=== PATIENT | male | born 1985 | race Caucasian/White ===

== ENCOUNTER 2016-05-09 10:04 | Emergency (ER) | payer SELFPAY ==
[~2016-05-09] VITALS: Ht 180.3 cm; Wt 66.0 kg
[2016-05-09 10:05] VITALS: BP 136/88; PULSE 120; RESP 18; TEMP 98.2; O2SAT 98
[2016-05-09 10:35] VITALS: BP 137/84; PULSE 102; RESP 20; O2SAT 98
[2016-05-09] MEDS ORDERED: LIDOCAINE VISCOUS 2% SOLN 15 ML UDC PO ONE (10:45)
[2016-05-09] MEDS ORDERED: FAMOTIDINE 20 MG/2 ML VIAL IV PUSH ONE (10:45)
[2016-05-09] MEDS ORDERED: ALUMINUM/MAGNESIUM/SIMETH 30 ML CUP PO ONE (10:45)
--- NOTE | 2016-05-09 10:55 | PD ---
HPI Chief Complaint: Abdominal Pain Time Seen by Provider: 10:32 Travel History International Travel<30 days: No Contact w/Intl Traveler<30days: No Traveled to known affect area: No History of Present Illness HPI Patient is a 30-year-old male who presents to emergency room with complaints of abdominal pain. Patient reports that he has been having constant abdominal pain for the past few months. Patient reports that his pain is located to the left upper abdomen, reports that he has pain to his stomach at all times and nothing makes symptoms better or worse. Reports nausea and vomiting with symptoms. Reports that he has overall decreased PO intake from his abdominal pain. Patient reports no fever/chills. Denies constipation/diarrhea. Reports no recent travels/trips. PFSH Past Medical History Medical History: Denies Significant Hx Diminished Hearing: No Tetanus Vaccination: > 5 Years Influenza Vaccination: No Past Surgical History Surgical History: No Previous Surgery Social History Alcohol Use: No Tobacco Use: Yes (1PPD) Substance Use: No Allergies-Medications (Allergen,Severity, Reaction): Coded Allergies: No Known Allergies (Unverified , 05/09/16) Reported Meds & Prescriptions Reported Meds & Active Scripts Active Protonix (Pantoprazole Sodium) 40 Mg Tab 40 Mg PO DAILY Review of Systems General / Constitutional: No: Fever Eyes: No: Visual changes HENT: No: Headaches Cardiovascular: No: Chest Pain or Discomfort Respiratory: No: Shortness of Breath Gastrointestinal: Positive: Nausea, Vomiting, Abdominal Pain Genitourinary: No: Dysuria Musculoskeletal: No: Pain Skin: No Rash Neurologic: No: Weakness Psychiatric: No: Depression Endocrine: No: Polydipsia Hematologic/Lymphatic: No: Easy Bruising Physical Exam Narrative GENERAL: No acute distress, nontoxic SKIN: Warm and dry. HEAD: Atraumatic. Normocephalic. EYES: Pupils equal and round. No scleral icterus. No injection or drainage. ENT: No nasal bleeding or discharge. Mucous membranes pink and moist. NECK: Trachea midline. No JVD. CARDIOVASCULAR: Regular rate and rhythm. No murmur appreciated. RESPIRATORY: No accessory muscle use. Clear to auscultation. Breath sounds equal bilaterally. GASTROINTESTINAL: Abdomen soft, non-tender, nondistended. MUSCULOSKELETAL: No obvious deformities. No clubbing. No cyanosis. No edema. NEUROLOGICAL: Awake and alert. No obvious cranial nerve deficits. Motor grossly within normal limits. Normal speech. PSYCHIATRIC: Appropriate mood and affect; insight and judgment normal. Data Data Last Documented VS Vital Signs Date Time Temp Pulse Resp B/P Pulse Ox O2 Delivery O2 Flow Rate FiO2 05/09/16 10:35 102 20 137/84 98 05/09/16 10:05 98.2 Room Air Orders Complete Blood Count With Diff (05/09/16 10:38) Comprehensive Metabolic Panel (05/09/16 10:38) Lipase (05/09/16 10:38) Prothrombin Time / Inr (Pt) (05/09/16 10:38) Act Partial Throm Time (Ptt) (05/09/16 10:38) Iv Access Insert/Monitor (05/09/16 10:38) Al-Mag Hy-Si 40-40-4 Mg/Ml Liq (Mag-Al P (05/09/16 10:45) Lidocaine 2% Viscous (Xylocaine 2% Visco (05/09/16 10:45) Famotidine Inj (Pepcid Inj) (05/09/16 10:45) Labs Laboratory Tests Test 05/09/16 10:45 White Blood Count 11.6 TH/MM3 Red Blood Count 4.84 MIL/MM3 Hemoglobin 14.7 GM/DL Hematocrit 42.5 % Mean Corpuscular Volume 87.8 FL Mean Corpuscular Hemoglobin 30.3 PG Mean Corpuscular Hemoglobin 34.6 % Concent Red Cell Distribution Width 13.5 % Platelet Count 220 TH/MM3 Mean Platelet Volume 8.5 FL Neutrophils (%) (Auto) 73.8 % Lymphocytes (%) (Auto) 16.8 % Monocytes (%) (Auto) 5.3 % Eosinophils (%) (Auto) 3.3 % Basophils (%) (Auto) 0.8 % Neutrophils # (Auto) 8.6 TH/MM3 Lymphocytes # (Auto) 2.0 TH/MM3 Monocytes # (Auto) 0.6 TH/MM3 Eosinophils # (Auto) 0.4 TH/MM3 Basophils # (Auto) 0.1 TH/MM3 CBC Comment DIFF FINAL Differential Comment Prothrombin Time 11.0 SEC Prothromb Time International 1.0 RATIO Ratio Activated Partial 29.9 SEC Thromboplast Time Sodium Level 138 MEQ/L Potassium Level 4.4 MEQ/L Chloride Level 106 MEQ/L Carbon Dioxide Level 27.0 MEQ/L Anion Gap 5 MEQ/L Blood Urea Nitrogen 12 MG/DL Creatinine 0.98 MG/DL Estimat Glomerular Filtration 90 ML/MIN Rate Random Glucose 91 MG/DL Calcium Level 8.5 MG/DL Total Bilirubin 0.5 MG/DL Aspartate Amino Transf 16 U/L (AST/SGOT) Alanine Aminotransferase 17 U/L (ALT/SGPT) Alkaline Phosphatase 74 U/L Total Protein 7.1 GM/DL Albumin 3.8 GM/DL Lipase 96 U/L MDM Medical Decision Making Medical Screen Exam Complete: Yes Emergency Medical Condition: Yes Interpretation(s) Vital Signs Date Time Temp Pulse Resp B/P Pulse Ox O2 Delivery O2 Flow Rate FiO2 05/09/16 10:35 102 20 137/84 98 05/09/16 10:05 98.2 120 18 136/88 98 Room Air Differential Diagnosis Gastritis, gastroenteritis, gastric ulcer, cholecystitis, electrolyte abnormality Narrative Course Patient is a 30-year-old male who presents to emergency room with complaints of left upper quadrant abdominal pain with nausea vomiting which has been ongoing for the past few months. Patient reports that nothing makes the pain better or worse, reports that he has overall decreased oral intake secondary to this pain. He has not follow-up with a primary care doctor or a rat farmer for his symptoms. Patient reports that he had increased pain this morning - pt here for evaluation. wbc 11.6, hemoglobin 14.7, hematocrit 42.5, platelets 220 Sodium 1:30, potassium 4.4, carbon dioxide 27, BUN 12, creatinine 0.98, LFTs: WNL UA: INR 1.0 abd is soft, nt/nd, no peritoneal signs, pt feeling much better at this time with complete resolution of abdominal pain. Patient with most likely gastritis versus gastric ulcer, understands need to follow-up with rat farmer as outpatient. Signs and symptoms of when to return to the emergency room was reviewed with patient in detail. Diagnosis Primary Impression: Gastritis Qualified Code: K29.50 - Chronic gastritis without bleeding, unspecified gastritis type Referrals: Mane Ventura MD Patient Instructions: General Instructions Departure Forms: Tests/Procedures, Work Release Enter return to work date: May 11, 2016 Additional Instructions: Please follow up with rat farmer as well as your primary care doctor as soon as possible Return to ER as needed Return to ER if symptoms progress or worsen Med/Other Pt SpecificInfo: Prescription(s) given Scripts Pantoprazole (Protonix)40 Mg Tab40 Mg PO DAILY #30 TAB Ref 0 Prov:Valery Bergeron DO 05/09/16 Disposition: 01 DISCHARGE HOME Condition: Stable Valery Bergeron DO May 09, 2016 10:55
[2016-05-09 11:01] LABS: AUTOMATED NEUTROPHIL # 8.6 TH/MM3 (1.8-7.7); BASOPHIL # 0.1 TH/MM3 (0-0.2); BASOPHIL % 0.8 % (0.0-2.0); EOSINOPHIL # 0.4 TH/MM3 (0-0.4); EOSINOPHIL % 3.3 % (0.0-4.0); HEMATOCRIT 42.5 % (39.0-51.0); HEMO FLAGS DIFF FINAL; LYMPH % 16.8 % (9.0-44.0); MEAN CELL VOLUME 87.8 FL (80.0-100.0); MEAN CORPUSCULAR HEMOGLOBIN 30.3 PG (27.0-34.0); MEAN CORPUSCULAR HGB CONC 34.6 % (32.0-36.0); MONO % 5.3 % (0.0-8.0); NEUT % 73.8 % (16.0-70.0); PLATELET COUNT 220 TH/MM3 (150-450); RED BLOOD COUNT 4.84 MIL/MM3 (4.50-5.90); RED CELL DISTRIBUTION WIDTH 13.5 % (11.6-17.2); WHITE BLOOD COUNT 11.6 TH/MM3 (4.0-11.0)
[2016-05-09 11:08] LABS: APTT (PATIENT) 29.9 SEC (24.3-30.1)
[2016-05-09 11:21] LABS: ANION GAP 5 MEQ/L (5-15); AST (GOT) 16 U/L (15-37); BLOOD UREA NITROGEN 12 MG/DL (7-18); CHLORIDE 106 MEQ/L (98-107); GLOMERULAR FILTRATION RATE 90 ML/MIN (>89); POTASSIUM 4.4 MEQ/L (3.5-5.1); SODIUM (NA) 138 MEQ/L (136-145)
[2016-05-09 11:24] LABS: ALKALINE PHOSPHATASE 74 U/L (45-117); ALT (GPT) 17 U/L (12-78); TOTAL BILIRUBIN ADULT 0.5 MG/DL (0.2-1.0)
[2016-05-09] MEDS ORDERED: PROT40TA PO (11:59)
[2016-05-09 12:50] VITALS: BP 125/82; PULSE 102; RESP 18; O2SAT 98
== END 2016-05-09 12:49 | disposition home or self-care (01) ==
LOC: NEPE 10:04
DX: K29.70 Gastritis, unspecified, without bleeding (principal); F17.210 Nicotine dependence, cigarettes, uncomplicated
CPT/HCPCS: 80053; 83690; 85025; 85610; 85730; 96374